=== PATIENT | female | born 1965 | race Caucasian/White ===

== ENCOUNTER → 2016-07-11 | Outpatient (CLI) | payer OTHER | LOC: BMCIMAGING 09:20 | PROVIDERS: ATTEND Physician Assistant | DX: M17.11 Unilateral primary osteoarthritis, right knee (principal); M25.461 Effusion, right knee ==

== ENCOUNTER 2016-09-03 06:20 | Day surgery (SDC) | payer OTHER ==
[2016-09-03] MEDS ORDERED: BUPIVACAINE/EPI 0.5% 30 ML SDV ONE (07:03)
[2016-09-03] MEDS ORDERED: LIDOCAINE 1% 5 ML SDV ID PRN (07:16)
[2016-09-03] MEDS ORDERED: LR 1,000 ML IV ONE (07:16)
[2016-09-03] MEDS ORDERED: LIDOCAINE 1% 2 ML INJ ONE (07:23)
[2016-09-03] MEDS ORDERED: CHLORHEXIDINE GLUC HIBICLENS 118 ML BTL TP ONE (08:00)
[2016-09-03] MEDS ORDERED: CEFAZOLIN 2 GM/DEXTR 100 ML IV ONE (08:00)
[2016-09-03] MEDS ORDERED: ACETAMINOPHEN 500 MG TAB PO ONE (08:00)
[2016-09-03] MEDS ORDERED: PROPOFOL 200 MG/20 ML VIAL ONE (08:23)
[2016-09-03] MEDS ORDERED: fentaNYL 100 MCG/2 ML INJ ONE (08:23)
[2016-09-03] MEDS ORDERED: MIDAZOLAM 2 MG/2 ML VIAL ONE (08:24)
[2016-09-03] MEDS ORDERED: PROPOFOL/EMULSION 500 MG/50 ML BOTTLE IV ONE (08:24)
[2016-09-03] MEDS ORDERED: DEXAMETHASONE 4 MG/ML VIAL ONE (08:44)
[2016-09-03] MEDS ORDERED: ONDANSETRON 4 MG/2 ML VIAL ONE (08:44)
== END 2016-09-03 12:15 | disposition home or self-care (01) ==
LOC: FSGY 06:20
PROVIDERS: ATTEND Orthopaedic Surgery
PROC: 0SQC4ZZ Repair Right Knee Joint, Percutaneous Endoscopic Approach (ICD-10-PCS; principal; 2016-09-03 08:30)
DX: M94.9 Disorder of cartilage, unspecified (principal)
CPT/HCPCS: J0171; J0690; J1100; J2250; J2405; J2704; J3010

== ENCOUNTER → 2016-10-10 | Outpatient (CLI) | payer OTHER | LOC: FIMAGING 12:48 | PROVIDERS: ATTEND Nurse Practitioner Women's Health | DX: Z12.31 Encounter for screening mammogram for malignant neoplasm of breast (principal) | CPT/HCPCS: G0202 ==

== ENCOUNTER → 2017-12-10 | Outpatient (CLI) | payer OTHER | DX: Z12.31 Encounter for screening mammogram for malignant neoplasm of breast (principal) ==